=== PATIENT | male | born 1980 | race Caucasian/White ===

== ENCOUNTER 2016-08-15 06:38 | Emergency (ER) | payer OTHER ==
[2016-08-15] MEDS ORDERED: IBUPROFEN 600 MG TABLET ONE (07:27)
[2016-08-15] MEDS ORDERED: MORPHINE SULFATE 2 MG/ML SYRINGE ONE (07:28)
[2016-08-15] MEDS ORDERED: DEXAMETHASONE 4 MG TABLET ONE (07:28)
[2016-08-15] MEDS ORDERED: MORPHINE SULFATE 4 MG/ML SYRINGE ONE (07:28)
[2016-08-15] MEDS ORDERED: ACETAMINOPHEN 325 MG TABLET ONE (07:28)
== END 2016-08-15 08:14 | disposition home or self-care (01) ==
LOC: ED 06:38
DX: M54.32 Sciatica, left side (principal); F17.210 Nicotine dependence, cigarettes, uncomplicated
CPT/HCPCS: 99283 ×2; 96372; 51798; A9270 ×3; J2270 ×2